=== PATIENT | male | born 1995 | race African-American/Black ===

== ENCOUNTER 2021-03-24 22:46 | Emergency (ER) | payer SELFPAY ==
[~2021-03-24] VITALS: Ht 177.8 cm; Wt 75.0 kg
[2021-03-25] MEDS ORDERED: ASPIRIN 81MG TABLET PO ONE
[2021-03-25 00:53] LABS: BASOPHILS % 0.5 % (0.0-2.0); EOSINOPHILS % 0.7 % (0.0-5.0); HEMATOCRIT. 44.2 % (42.0-52.0); MEAN CORPUSCULAR VOLUME 82.6 fL (80.0-94.0); MEAN PLATELET VOLUME 8.3 fl (7.4-10.4); MONOCYTES % 7.3 % (2.0-8.0); NEUTROPHILS % 65.5 % (40.0-76.0); PLATELET 304 x1000/uL (130-400); RED BLOOD CELL COUNT 5.35 mill/uL (4.7-6.1); RED CELL DISTRIBUTION WIDTH 12.9 % (11.6-14.6)
[2021-03-25 00:56] LABS: CHLORIDE 102 mEq/L (98-107)
[2021-03-25 01:01] LABS: ETHANOL BLOOD < 10 mg/dL
[2021-03-25 02:32] LABS: METHADONE URINE SCREEN NEGATIVE (NEGATIVE); OPIATES URINE SCREEN NEGATIVE (NEGATIVE); PHENCYCLIDINE URINE SCREEN NEGATIVE (NEGATIVE)
[2021-03-25 02:33] LABS: *AMPHETAMINES SCREEN URINE NEGATIVE (NEGATIVE); *BARBITURATES SCREEN URINE NEGATIVE (NEGATIVE); *BENZODIAZEPINES SCREEN URINE NEGATIVE (NEGATIVE); *COCAINE SCREEN URINE NEGATIVE (NEGATIVE); CANNABINOID URINE SCREEN NEGATIVE (NEGATIVE)
[2021-03-25 04:40] VITALS: BP 127/83
== END 2021-03-25 05:12 | disposition home or self-care (01) ==
LOC: ER 23:41
DX: R07.89 Other chest pain (principal); R00.2 Palpitations
CPT/HCPCS: 36415; 71045; 80053; 80305; 80320; 83880; 84443; 84484; 85025; 85379; 93005; 99285; Z7610; G0480

== ENCOUNTER 2021-11-16 22:23 | Emergency (ER) | payer SELFPAY ==
[~2021-11-16] VITALS: Ht 172.7 cm; Wt 62.1 kg
[2021-11-16 22:28] VITALS: BP 125/66
[2021-11-17 00:21] LABS: CLARITY URINE CLEAR (CLEAR); COLOR URINE YELLOW (YELLOW); KETONES URINE TRACE (NEGATIVE); LEUKOCYTE ESTERASE URINE TRACE (NEGATIVE); NITRITE URINE NEGATIVE (NEGATIVE); OCCULT BLOOD URINE NEGATIVE (NEGATIVE); PH URINE 6.5 (4.5-8.0); PROTEIN URINE 1+ (NEGATIVE); SPECIFIC GRAVITY URINE 1.039 (1.005-1.030)
[2021-11-17] MEDS ORDERED: SULF1TAB48 MT (02:34)
[2021-11-17] MEDS ORDERED: SULFAMETHOXAZOLE/TRIMETHOPRIM 800/160MG TABLET PO ONE (02:45)
== END 2021-11-17 03:12 | disposition home or self-care (01) ==
LOC: ER 22:23
DX: N39.0 Urinary tract infection, site not specified (principal)
CPT/HCPCS: 81003; 99283